=== PATIENT | male | born 1985 | race Caucasian/White ===

== ENCOUNTER 2018-09-14 22:46 | Emergency (ER) | payer MEDICAID ==
[~2018-09-14] VITALS: Ht 180.3 cm; Wt 83.9 kg
[2018-09-14] MEDS ORDERED: TESTOSTERONE5 G1 IM (23:08)
[2018-09-14] MEDS ORDERED: GABAPENTIN800 MG ORAL (23:08)
[2018-09-14 23:16] VITALS: BP 136/75
--- NOTE | 2018-09-14 23:16 | NUR ---
ED Nurse Note: possible fevers and anxiety after taking steroids x 2 days, night sweats and anxiety
--- NOTE | 2018-09-14 23:17 | NUR ---
ED Nurse Note: per pt he was also experiecning nausea 2 days ago
--- NOTE | 2018-09-14 23:29 | Emergency Room Report ---
History of Present Illness General Chief Complaint: General Complaint Source: Patient Present Illness HPI Is a 32-year-old male with history of anxiety. He started injecting himself with testosterone. He said previous injection did have any problem. He injected in the right buttock area 3 days ago. Since then he said he did not feel well. He felt that worse and chills. Pain all over. No nausea no vomiting. Denies any other complaint. Again subjective fever. Allergies: Coded Allergies: No Known Allergies (Unverified , 09/14/18) Patient History Past Medical History: see triage record, old chart reviewed, psych hx Past Surgical History: none Pertinent Family History: none Social History: Denies: smoking Immunizations: other Reviewed Nursing Documentation: PMH: Agreed; PSxH: Agreed Nursing Documentation-PMH Past Medical History: No Stated History History Of Psychiatric Problem: Yes - anxiety Review of Systems Constitutional: Reports: chills, fever, malaise Eye: Denies: eye pain, blurred vision ENT: Denies: ear pain, nose congestion, throat swelling Respiratory: Denies: cough, shortness of breath Cardiovascular: Denies: chest pain, palpitations Gastrointestinal: Denies: abdominal pain, diarrhea, nausea, vomiting Musculoskeletal: Denies: back pain, joint pain Skin: Denies: rash Neurological: Denies: headache, numbness Endocrine: Denies: increased thirst, increased urine Hematologic/Lymphatic: Denies: easy bruising All Other Systems: negative except mentioned in HPI Physical Exam Vital Signs Date Time Temp Pulse Resp B/P (MAP) Pulse Ox O2 Delivery O2 Flow Rate FiO2 09/14/18 23:01 97.9 101 16 136/75 97 Room Air vitals normal Sp02 EP Interpretation: reviewed, normal General Appearance: well appearing, no apparent distress, alert Head: normocephalic, atraumatic Eyes: bilateral eye PERRL, bilateral eye EOMI ENT: hearing grossly normal, normal pharynx Neck: full range of motion, supple, no meningismus Respiratory: chest non-tender, lungs clear, normal breath sounds Cardiovascular #1: regular rate, rhythm, no murmur Gastrointestinal: normal bowel sounds, non tender, no mass, no organomegaly, no bruit, non-distended Rectal: other - Right buttock: There is no mass or redness. No erythema. No warmth. Musculoskeletal: back normal, gait/station normal, normal range of motion Psychiatric: mood/affect normal Skin: warm/dry Medical Decision Making Diagnostic Impression: Primary Impression: Encounter for generalized patient complaints ER Course Patient with somatizations and multiple complaints that been ongoing for one day. I see no evidence of any abscess or infection going on. This could be withdrawal from his gabapentin as he said has been out for few days. Could be side effect of the testosterone injection. Told patient not to take medication that is not prescribed for him. We'll discharge home. Lab Results Impression labs unremarkable Last Vital Signs Date Time Temp Pulse Resp B/P (MAP) Pulse Ox O2 Delivery O2 Flow Rate FiO2 09/14/18 23:16 97.9 101 16 136/75 97 Room Air Status: unchanged Disposition: HOME, SELF-CARE Condition: Stable Referrals: NOT CHOSEN IPA/,REFERRING (PCP) Additional Instructions: Stop taking medicine that is not prescribed for you. Follow-up with your doctor in 7 days. Return if symptom worsen. Immanuel Moctezuma MD Sep 14, 2018 23:29
[2018-09-14 23:40] LABS: BASOPHILS % (AUTO) 0.9 % (0.0-2.0); EOSINOPHILS % (AUTO) 2.4 % (0.0-3.0); LYMPHOCYTES % (AUTO) 24.8 % (20.0-45.0); MEAN CORPUSCULAR VOLUME 92 FL (80-99); MONOCYTES % (AUTO) 5.6 % (1.0-10.0); NEUTROPHILS % (AUTO) 66.4 % (45.0-75.0); PLATELET COUNT 276 K/UL (150-450); RED BLOOD COUNT 5.46 M/UL (4.70-6.10); RED CELL DISTRIBUTION WIDTH 12.8 % (11.6-14.8); WHITE BLOOD COUNT 13.6 K/UL (4.8-10.8)
[2018-09-14 23:54] LABS: ANION GAP 8 mmol/L (5-15); BLOOD UREA NITROGEN 14 mg/dL (7-18); CALCIUM 9.6 MG/DL (8.5-10.1); CARBON DIOXIDE 28 MMOL/L (21-32); CHLORIDE 103 MMOL/L (98-107); POTASSIUM 3.8 MMOL/L (3.5-5.1); SODIUM 139 MMOL/L (136-145)
[2018-09-15 00:34] VITALS: BP 136/75
--- NOTE | 2018-09-15 00:34 | NUR ---
ER DISCHARGE NOTE: Patient is cleared to be discharged per ERMD, pt is aox4, on room air, with stable vital signs. pt was given dc and prescription instructions, pt was able to verbalize understanding, pt id band removed. pt is able to ambulate with steady gait. pt took all belongings.
== END 2018-09-15 00:30 | disposition home or self-care (01) ==
LOC: EMR 23:23
DX: R52 Pain, unspecified (principal); R53.83 Other fatigue; F41.9 Anxiety disorder, unspecified; R68.83 Chills (without fever)
CPT/HCPCS: 36415; 80048; 85025; 99284

== ENCOUNTER 2019-05-22 08:46 | Emergency (ER) | payer MEDICAID ==
[~2019-05-22] VITALS: Ht 175.3 cm; Wt 81.6 kg
--- NOTE | 2019-05-22 08:43 | NUR ---
ED Nurse Note: pt with bottle of klonopin with pt, unk quantity of pt ingested.
[~2019-05-22 08:46] MED LIST: GABAPENTIN800 MG ORAL; TESTOSTERONE5 G1 IM
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
[2019-05-22 08:55] VITALS: BP 121/66
[2019-05-22] MEDS ORDERED: KLONOPIN1 MG ORAL (08:55)
[2019-05-22 09:37] LABS: APPEARANCE,URINE CLEAR; BILIRUBIN, URINE NEGATIVE (NEGATIVE); COLOR,URINE PALE YELLOW; GLUCOSE, URINE (UA) NEGATIVE (NEGATIVE); KETONES,URINE 1+ (NEGATIVE); LEUKOCYTE ESTERASE ,URINE NEGATIVE (NEGATIVE); NITRITE,URINE NEGATIVE (NEGATIVE); PH,URINE 7 (4.5-8.0); PROTEIN,URINE NEGATIVE (NEGATIVE); UROBILINOGEN,URINE NORMAL MG/DL (0.0-1.0)
[2019-05-22 09:39] LABS: EOSINOPHILS % (AUTO) 1.8 % (0.0-3.0); HEMATOCRIT 47.7 % (42.0-52.0); HEMOGLOBIN 16.7 G/DL (14.2-18.0); MEAN CORPUSCULAR VOLUME 92 FL (80-99); MONOCYTES % (AUTO) 8.9 % (1.0-10.0); NEUTROPHILS % (AUTO) 59.4 % (45.0-75.0); PLATELET COUNT 313 K/UL (150-450); RED CELL DISTRIBUTION WIDTH 10.5 % (11.6-14.8); WHITE BLOOD COUNT 9.7 K/UL (4.8-10.8)
[2019-05-22 09:40] VITALS: BP 121/66
[2019-05-22 09:45] VITALS: BP 121/66
--- NOTE | 2019-05-22 09:45 | NUR ---
ED Nurse Note: Patient stable, no signs of acute distress. Per Dr. Bacon, patient okay to be discharged. IV and nameband removed.
[2019-05-22 09:58] LABS: ANION GAP 6 mmol/L (5-15); BLOOD UREA NITROGEN 16 mg/dL (7-18); CARBON DIOXIDE 31 MMOL/L (21-32); CHLORIDE 104 MMOL/L (98-107); CREATININE 1.1 MG/DL (0.55-1.30); POTASSIUM 3.9 MMOL/L (3.5-5.1); SODIUM 141 MMOL/L (136-145)
[2019-05-22 10:09] LABS: ALANINE AMINOTRANSFERASE 30 U/L (12-78); ALBUMIN 4.2 G/DL (3.4-5.0); ALBUMIN/GLOBULIN RATIO 1.3 (1.0-2.7); ALKALINE PHOSPHATASE 86 U/L (46-116); ASPARTATE AMINO TRANSFERASE 28 U/L (15-37); BILIRUBIN,TOTAL 2.4 MG/DL (0.2-1.0)
[2019-05-22 10:11] LABS: BILIRUBIN,DIRECT 0.3 MG/DL (0.0-0.3)
== END 2019-05-22 09:45 | disposition home or self-care (01) ==
LOC: EDBD 08:46 → EMR 09:15
DX: R41.82 Altered mental status, unspecified (principal)
CPT/HCPCS: 36415; 80053; 80307; 81003; 82248; 85025; G0480; G0481; Z7502; 99283